=== PATIENT | male | born 1995 | race Two or more races ===

== ENCOUNTER 2023-06-22 16:47 | Emergency (ER) | payer OTHER, SELFPAY ==
[2023-06-22 16:50] VITALS: BP 134/97
[2023-06-22 17:21] LABS: % Basophils 0.5 % (0-2); % Eosinophils 2.2 % (0-6); % Immature Granulocytes 0.2 % (0-0.5); % Lymphocytes 58.3 % (20.5-51.1); % Monocytes 10.2 % (1.7-9.3); % Neutrophils 28.6 % (42.2-75.2); Absolute Eosinophils 0.1 10^3/uL (0-0.7); Absolute Lymphocytes 2.4 10^3/uL (1.2-3.4); Absolute Monocytes 0.4 10^3/uL (0.1-0.6); Absolute Neutrophils 1.2 10^3/uL (1.4-6.5); Hematocrit 33.8 % (39.0-52.0); Hemoglobin 11.4 g/dL (13.0-18.0); Mean Corp Hgb Conc. 33.7 g/dL (33.0-37.0); Mean Corpuscular Hgb 27.6 pg (27.0-31.0); Mean Corpuscular Volume 81.8 fL (80.0-94.0); Mean Platelet Volume 9.8 fL (7.4-10.4); Nucleated Red Blood Cells % 0 % (-); Platelet Count 369 10^3/uL (130-400); Red Blood Cell Count 4.13 10^6/uL (4.70-6.10); Red Cell Dist. Width 13.2 % (11.5-14.5); White Blood Cell Count 4.1 10^3/uL (4.8-10.8)
[2023-06-22 17:33] LABS: ALT (SGPT) 14 U/L (0-50); AST (SGOT) 26 U/L (17-59); Albumin 4.4 g/dl (3.5-5.0); Alkaline Phosphatase 78 U/L (38-126); Blood Urea Nitrogen 5 mg/dl (9-20); Calcium 9.7 mg/dl (8.4-10.2); Carbon Dioxide 25 mmol/L (22-30); Chloride 106 mmol/L (98-107); Glucose 86 mg/dl (70-99); Potassium 4.4 mmol/L (3.5-5.1); Sodium 139 mmol/L (135-145); Total Bilirubin 0.6 mg/dl (0.2-1.3); Total Protein 8.2 g/dl (6.3-8.2); eGFR > 60.00
--- NOTE | 2023-06-22 19:46 | ED.GENMED ---
History of Present Illness
General
Chief Complaint: Abnormal Lab Value
Source: patient
Exam Limitations: none
Time Seen by Provider: 06/22/23 19:09
Travel History
Have you had any contact with someone who has COVID-19?: No
Do you have any symptoms of coronavirus? Fever > 100 degrees, chills, cough, shortness of breath, sore throat, loss of taste or smell, muscle aches, or headache?: No
History of Present Illness
History of Present Illness:
This is a 27 year old male that comes in with multiple complaints. States that he was in the PCP office and he was told to come to the ER. States that he went to on June 05 or and his Hgb was 12. Then he went back on the and his Hgb was
10. States that he has also been feeling sick since April as he had chills and felt weak with a fever. States that he is feeling better. 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 States that he also has right ear pain. States that he still
had a fever with chills a couple of days ago. Denies any chest pain, SOB, abd pain, nausea, vomiting, diarrhea, black or bloody stool, headache, dizziness, urinary burning.
Past History
Past History
ED Past Medical History: None; Negative Asthma, HTN, Hypercholesterolemia or NIDDM
ED Past Surgical History: None
Social History
Tobacco: Non-smoker
Alcohol: None
Personal:
Living: with family
Review of Systems
Review of Systems
All Other Systems: ROS reviewed and negative except as documented in HPI and ROS
Constitutional: Reports fever (Couple days ago) and chills (Couple days ago)
EENT: Reports other (Right ear pain)
Respiratory: Reports no symptoms; Denies cough or trouble breathing
Cardiac: Reports no symptoms; Denies chest pain
ABD/GI: Reports no symptoms; Denies abdominal pain, nausea, vomiting, diarrhea, bloody stools or black stools
: Reports no symptoms; Denies dysuria, frequency or urgency
Musculoskeletal: Reports no symptoms
Skin: Reports no symptoms
Neurological: Reports no symptoms; Denies dizzy or headache
Psychiatric: Reports no symptoms
Phy Exam
General Physical Exam
General Presentation: well appearing and no apparent distress
General age: appears stated age
General Skin: warm and dry
General Habitus: normal
General Mental: alert
General Hydration: appears well hydrated
ENT Exam
ENT Exam: TM's normal, pharynx normal, neck supple and other (Right otitis externa)
Eye Exam
Eye Exam: EOMI
Cardiovascular Exam
Cardiovascular Exam: regular rate/rhythm, no edema, no murmur and normal peripheral pulses
Pulmonary Exam
Pulmonary Exam: lungs clear, no respiratory distress, no rales, chest non tender, no crackles, no rhonchi, no wheezing and no cough
Gastrointestinal Exam
Gastrointestinal Exam: normal bowel sounds, non tender, soft, no organomegaly, no pulsatile mass and non distended
Musculoskeletal Exam
Musculoskeletal Exam: full ROM and no edema
Skin Exam
Skin Exam: normal color, warm/dry, no rash and no petechia
Psychiatric Exam
Psychiatric Exam: normal mood/affect
Course
Orders/Labs/Results
Orders:
Orders
06/22/23 17:00
Type+Screen Urgent
Complete Blood Count/With Diff Urgent
Comprehensive Metabolic Panel Urgent
06/22/23 20:01
Lactic Acid Urgent
Blood Culture Q30M
[facility] Source: Blood/Venous
Specimen Description:
Blood Culture Q30M
[facility] Source: Blood/Venous
Specimen Description:
Abnormal Lab Results
06/22/23
17:00
WBC 4.1 L 10^3/uL
(4.8-10.8)
RBC 4.13 L 10^6/uL
(4.70-6.10)
Hgb 11.4 L g/dL
(13.0-18.0)
Hct 33.8 L %
(39.0-52.0)
Absolute Neuts (auto) 1.2 L 10^3/uL
(1.4-6.5)
Neutrophils % 28.6 L %
(42.2-75.2)
Lymphocytes % 58.3 H %
(20.5-51.1)
Monocytes % 10.2 H %
(1.7-9.3)
BUN 5 L mg/dl
(9-20)
Creatinine 0.5 L mg/dL
(0.7-1.3)
06/22/23 17:00
06/22/23 17:00
Leukopenia, H/H slightly low. Lactic acid 1.0
Vital Signs
Initial and Last Documented VS:
Initial Vital Signs
Temp Pulse Resp BP Pulse Ox
99.2 F 72 18 134/97 100
06/22/23 16:50 06/22/23 16:50 06/22/23 16:50 06/22/23 16:50 06/22/23 16:50
Last Documented Vital Signs
Temp Pulse Resp BP Pulse Ox
99.2 F 72 18 134/97 100
06/22/23 16:50 06/22/23 16:50 06/22/23 16:50 06/22/23 16:50 06/22/23 16:50
MDM/Problems Addressed
Differential Diagnosis Includes:
Otitis externa,
MDM/Problems Addressed:
This is a 27 year old male that comes in with multiple complaints. States that he was sent in by the PCP as his Hgb has been going up and down. States that he was also sick in [place] and continued with a fever up to a couple of days ago. States that
he also has right ear pain.
Explained to patient that his Hgb is 11.4. Patient has not had any blood or bladk stool. Patient still has a low grade temperature here. States that he is trying to get into see Infectious disease. Will get Labs and blood cultures with a lactic acid
at this Time. Explained that it appears that he has otitis externa Will place patent on Ciprodex 4 drops BID for 7 days. Patient to also follow up with the ENT specialist. Patient to return with any concerns.
Chronic conditions affecting care:
NA
Acute Exacerbation and/or Progression of Chronic Illness:
NA
*Pulse Oximetry
Patient hypoxic: no
*EKG
Interpreted by ED Provider?: NA
Rate: EKG- N/A
*Manufacturer Representative Interpretation
Rate: Manufacturer Representative- N/A
*Critical Care Note
Total Time (30-74mins, 75-104mins- exclusive of procedures): Not Applicable
ED Attending Note
-
Portions of this chart may have been created with voice recognition software.� Occasional wrong word or��sound alike� substitutions may have occurred due to the inherent limitations of voice recognition software.
Discharge Plan
Departure
Patient Disposition: Home (Routine Discharge)
Date of Disposition: 06/22/23
Time of Disposition: 19:57
Patient with high blood pressure during this ER visit?: Yes
Condition: Good
Covid-19: Not Applicable
Discharge Problem:
Otitis externa
Instructions: Outer Ear Infection ED, BLOOD PRESSURE
Referrals:
Pavel Way MD [Active] - Follow up in 2-3 days
Activity Restrictions/Additional Instructions:
As discussed, your blood work shows that hour Hgb is 11.4. Your White blood cell count is slightly low. You have also had blood culture and alactic acid drawn so you can follow up with Infectious disease. You have been given Ear drops for the right
ear. Please use 4 drops twice daily for the next 7 days. Follow up with the ENT specialist for further evaluation. IF YOU HAVE ANY OTHER CONCERNS PLEASE RETURN TO THE EMERGENCY ROOM.
Interventions
Interventions:
*Risk Screen - Suicide Last Done: 06/22/23 16:50
*General Assessment Last Done: 06/22/23 16:50
*Neglect/Abuse Screening Last Done: 06/22/23 16:50
ED- Fall Risk Assessment Last Done: 06/22/23 20:44
*ED COVID-19 Vaccine History Last Done: 06/22/23 16:50
*Nursing Disposition Last Done: 06/22/23 20:44
Discharge Date and Time
Discharge Date/Time: 06/22/23 20:44
Print Language: [id number]
== END 2023-06-22 20:44 | disposition home or self-care (01) ==
LOC: EMR 16:47
PROVIDERS: Clinical Nurse Specialist Family Health; EMERGENCY PHYSICIAN Emergency Medicine; FAMILY PHYSICIAN Physician Assistant Medical
DX: H60.91 Unspecified otitis externa, right ear (principal)
CPT/HCPCS: 99283; 80053; 83605; 85025; 86850; 86900; 86901; 87040

== ENCOUNTER → 2023-06-29 16:10 | Outpatient (REF) | payer OTHER, SELFPAY | LOC: RAD 16:10 | PROVIDERS: ATTENDING PHYSICIAN Internal Medicine Infectious Disease; FAMILY PHYSICIAN Physician Assistant Medical | DX: R06.02 Shortness of breath (principal); R50.9 Fever, unspecified | CPT/HCPCS: 71046 ==